=== PATIENT | female | born 2000 | race Caucasian/White ===

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

== ENCOUNTER 2022-04-15 21:03 | Emergency (ER) | payer BC ==
[2022-04-15 21:27] VITALS: BP 136/73; PULSE 115
[2022-04-15] MEDS ORDERED: Sodium Chloride 0.9% 1,000 ML IV ONE (21:38)
[2022-04-15] MEDS ORDERED: Dexamethasone 10 MG/ML SDV IVPUSH STA (21:40)
[2022-04-15] MEDS ORDERED: Metoclopramide 10 MG/2 ML SDV IVPUSH ONE (22:06)
[2022-04-15] MEDS ORDERED: cefTRIAXone 2 GM in Sodium Chloride 0.9% 100 ML IV ONE (22:34)
== END 2022-04-15 23:23 | disposition other institution (70) ==
LOC: JD.ED 21:03
DX: K12.2 Cellulitis and abscess of mouth (principal); N17.9 Acute kidney failure, unspecified; E86.0 Dehydration
CPT/HCPCS: 36415; 80048; 83605; 85025; 86140; 96361; 96365; 96375; 99284; J0696; J1100; J2765; J7030